=== PATIENT | male | born 1955 | race Caucasian/White ===

== ENCOUNTER 2017-11-13 09:52 | Emergency (ER) | payer BC, OTHER ==
[2017-11-13 11:28] LABS: Absolute Lymphocytes (CBC) 3.2 K/uL (0.7-4.9); Absolute Monocytes 0.9 K/uL (0.1-1.3); Absolute Neutrophil 5.2 K/uL (1.8-8.0); Basophils % 0.7 % (0-1.3); Eosinophils % 1.8 % (0-4.4); Hematocrit 57.4 % (39.6-49.0); Lymphocytes % 33.4 % (15.3-44.8); MCH 33.4 pg (27.0-35.0); MCV 98.1 fL (80-100); MPV 7.8 fL (7.6-11.3); Monocytes % 9.7 % (3.3-12.3); RBC Red Blood Cell Count 5.85 M/uL (4.33-5.43)
[2017-11-13 11:39] LABS: Protime INR 0.97
--- NOTE | 2017-11-13 12:47 | RAD REPORT ---
EXAM DESCRIPTION: RAD - Chest Single View - 11/13/2017 11:27 am CLINICAL HISTORY: Dyspnea COMPARISON: January 2017 TECHNIQUE: AP portable chest image was obtained 1113 hours . FINDINGS: No mass, consolidation or failure. Patient has chronic interstitial lung disease stable fr om prior imaging. Heart and vasculature are normal. No measurable pleural effusion and no pneumothora x. No gross bony abnormality seen. No acute aortic findings suspected. IMPRESSION: No acute cardiopulmonary process. Chronic interstitial lung disease similar to comparison.
[2017-11-13 12:57] LABS: ALT/SGPT 43 U/L (12-78); AST/SGOT 41 U/L (15-37); Alkaline Phosphatase 137 U/L (45-117); BUN Blood Urea Nitrogen 7 mg/dL (7-18); Bicarbonate 25 mmol/L (21-32); Bilirubin Direct 0.4 mg/dL (0-0.2); Bilirubin Total 1.4 mg/dL (0.2-1.0); CKMB Creatine Kinase MB 1.3 ng/mL (0.3-3.6); Creatine Phosphokinase 56 U/L (39-308); Glucose Level 84 mg/dL (74-106); NT PRO-BNP 27 pg/mL (<125); Potassium 4.4 mmol/L (3.5-5.1); Protein, Total 8.5 g/dL (6.4-8.2); Sodium Level 135 mmol/L (136-145)
--- NOTE | 2017-11-13 13:21 | ER ---
Nurse's Notes [facility] Name: Holland Wharton Age: 62 yrs Sex: Male : 1955 Arrival Date: 11/13/2017 Time: 09:55 Bed 19 Private MD: Out, [facility] Diagnosis: Tobacco abuse counseling;Tobacco use;Polycythemia vera;Chronic obstructive pulmonary disease, unspecified Presentation: 11/13 10:27 Presenting complaint: Patient states: sent by PCP for abnormal lab results. Pt reports sv epigastric pain, "feels like I have a gas bubble.". Transition of care: patient was not received from another setting of care. Onset of symptoms is unknown. Care prior to arrival: None. 10:27 Method Of Arrival: Ambulatory sv 10:27 Acuity: ANDREI 3 sv 11:21 Risk Assessment: Do you want to hurt yourself or someone else? Patient reports no em desire to harm self or others. Initial Sepsis Screen: Does the patient meet any 2 criteria? No. Patient's initial sepsis screen is negative. Does the patient have a suspected source of infection? No. Patient's initial sepsis screen is negative. Historical: - Allergies: 10:30 No Known Allergies; sv - Home Meds: 10:30 aspirin 325 mg Oral tab 1 tab once daily [Active]; atorvastatin 10 mg oral tab 1 tab sv once daily [Active]; metoprolol tartrate 25 mg Oral tab 1 tab 2 times per day [Active]; - PMHx: 10:30 Ischemic stroke; hyperglycemia; Hypertension; sv - PSHx: 10:30 None; sv - Immunization history:: Adult Immunizations up to date. - Social history:: Smoking status: Patient uses tobacco products, smokes one pack cigarettes per day. Patient uses alcohol, weekly. - Ebola Screening: : No symptoms or risks identified at this time. Screenin:20 Abuse screen: Denies threats or abuse. Nutritional screening: No deficits noted. em Tuberculosis screening: No symptoms or risk factors identified. Fall Risk None identified. Assessment: 10:55 General: Appears in no apparent distress. comfortable, Behavior is calm, cooperative, em appropriate for age. General: Reports was told to come have labs checked, 19.9 hgb and 59.4 hct. Pain: Denies pain. Neuro: Level of Consciousness is awake, alert, obeys commands, Oriented to person, place, time, situation. Cardiovascular: Capillary refill < 3 seconds Patient's skin is warm and dry. Cardiovascular: Denies chest pain, nausea, shortness of breath. Respiratory: Airway is patent Respiratory effort is even, unlabored, Respiratory pattern is regular, symmetrical. GI: Abdomen is flat. : Urine is clear. EENT: No signs and/or symptoms were reported regarding the EENT system. Derm: Skin is intact, Skin is pink, warm \\T\\ dry. Musculoskeletal: Range of motion: intact in all extremities. 11:50 Reassessment: Patient appears in no apparent distress at this time. Patient and/or em family updated on plan of care and expected duration. Pain level reassessed. Patient is alert, oriented x 3, equal unlabored respirations, skin warm/dry/pink. Patient denies pain at this time. 13:10 Reassessment: Patient appears in no apparent distress at this time. Patient and/or em family updated on plan of care and expected duration. Pain level reassessed. Patient is alert, oriented x 3, equal unlabored respirations, skin warm/dry/pink. pending troponin results. 13:31 Reassessment: Patient appears in no apparent distress at this time. request to have em some food and go smoke a cigarette, pt allowed to smoke and get food from vending machine. Vital Signs: 10:30 BP 124 / 88; Pulse 88; Resp 18; Temp 98.3; Pulse Ox 96% ; Weight 61.23 kg; Height 5 ft. sv 9 in. (175.26 cm); Pain 0/10; 13:49 BP 126 / 92; Pulse 77; Resp 16; Pulse Ox 99% on R/A; Pain 0/10; em 10:30 Body Mass Index 19.94 (61.23 kg, 175.26 cm) sv ED Course: 09:55 Patient arrived in ED. sb2 09:56 Out, [facility] is Private Physician. sb2 10:28 Triage completed. sv 10:30 Arm band placed on left wrist. sv 10:32 Ced Mesa MD is Attending Physician. kentrell 10:37 Merritt Martines LVN is Primary Nurse. em 11:10 No provider procedures requiring assistance completed. Inserted saline lock: 20 gauge em in right forearm, using aseptic technique. Blood collected. 11:10 Initial lab(s) drawn, by me, sent to lab. em 11:20 Patient has correct armband on for positive identification. Bed in low position. Call em light in reach. 11:27 XRAY Chest (1 view) In Process Unspecified. EDMS 11:47 EKG done, by ED staff, reviewed by Ced Mesa MD. em1 13:15 Repeat lab(s) drawn. by me, sent to lab. sg 13:56 IV discontinued, intact, bleeding controlled, No redness/swelling at site. Pressure em dressing applied. Administered Medications: No medications were administered Outcome: 13:21 Discharge ordered by . [facility] 13:56 Discharged to home ambulatory. em 13:56 Condition: good 13:56 Discharge instructions given to patient, Instructed on discharge instructions, follow up and referral plans. Demonstrated understanding of instructions, follow-up care. 13:58 Patient left the ED. sg Signatures: Dispatcher [employer] Loida Merchant RN RN sv Gay, Steven, RN RN sg Anderson, Corey, MD MD cha Munoz, Edgar, SHED BOSS SHED BOSS Cirilo Garcia em1 Anamaria Ruiz sb2
--- NOTE | 2017-11-13 13:21 | EDPHYS ---
Physician Documentation [facility] Name: Holland Wharton Age: 62 yrs Sex: Male : 1955 Arrival Date: 11/13/2017 Time: 09:55 Bed 19 Private MD: Out, [facility] ED Physician Ced Mesa HPI: 11/13 11:24 This 62 yrs old Male presents to ER via Ambulatory with complaints of kentrell Abnormal Lab Results. Historical: - Allergies: 10:30 No Known Allergies; sv - Home Meds: 10:30 aspirin 325 mg Oral tab 1 tab once daily [Active]; atorvastatin 10 mg oral tab 1 tab sv once daily [Active]; metoprolol tartrate 25 mg Oral tab 1 tab 2 times per day [Active]; - PMHx: 10:30 Ischemic stroke; hyperglycemia; Hypertension; sv - PSHx: 10:30 None; sv - Immunization history:: Adult Immunizations up to date. - Social history:: Smoking status: Patient uses tobacco products, smokes one pack cigarettes per day. Patient uses alcohol, weekly. - Ebola Screening: : No symptoms or risks identified at this time. ROS: 11:24 Constitutional: Negative for fever, chills, and weight loss, Eyes: Negative for injury, kentrell pain, redness, and discharge, ENT: Negative for injury, pain, and discharge, Neck: Negative for injury, pain, and swelling, Cardiovascular: Negative for chest pain, palpitations, and edema, Respiratory: Negative for shortness of breath, cough, wheezing, and pleuritic chest pain, Abdomen/GI: Negative for abdominal pain, nausea, vomiting, diarrhea, and constipation, Back: Negative for injury and pain, : Negative for injury, bleeding, discharge, and swelling, MS/Extremity: Negative for injury and deformity, Skin: Negative for injury, rash, and discoloration, Neuro: Negative for headache, weakness, numbness, tingling, and seizure, Psych: Negative for depression, anxiety, suicide ideation, homicidal ideation, and hallucinations, Allergy/Immunology: Negative for hives, rash, and allergies, Endocrine: Negative for neck swelling, polydipsia, polyuria, polyphagia, and marked weight changes, Hematologic/Lymphatic: Negative for swollen nodes, abnormal bleeding, and unusual bruising. Exam: 11:24 Constitutional: This is a well developed, well nourished patient who is awake, alert, kentrell and in no acute distress. Head/Face: Normocephalic, atraumatic. Eyes: Pupils equal round and reactive to light, extra-ocular motions intact. Lids and lashes normal. Conjunctiva and sclera are non-icteric and not injected. Cornea within normal limits. Periorbital areas with no swelling, redness, or edema. ENT: Nares patent. No nasal discharge, no septal abnormalities noted. Tympanic membranes are normal and external auditory canals are clear. Oropharynx with no redness, swelling, or masses, exudates, or evidence of obstruction, uvula midline. Mucous membranes moist. Neck: Trachea midline, no thyromegaly or masses palpated, and no cervical lymphadenopathy. Supple, full range of motion without nuchal rigidity, or vertebral point tenderness. No Meningismus. Chest/axilla: Normal chest wall appearance and motion. Nontender with no deformity. No lesions are appreciated. Cardiovascular: Regular rate and rhythm with a normal S1 and S2. No gallops, murmurs, or rubs. Normal PMI, no JVD. No pulse deficits. Respiratory: Lungs have equal breath sounds bilaterally, clear to auscultation and percussion. No rales, rhonchi or wheezes noted. No increased work of breathing, no retractions or nasal flaring. Abdomen/GI: Soft, non-tender, with normal bowel sounds. No distension or tympany. No guarding or rebound. No evidence of tenderness throughout. Back: No spinal tenderness. No costovertebral tenderness. Full range of motion. Male : Normal genitalia with no discharge or lesions. Skin: Warm, dry with normal turgor. Normal color with no rashes, no lesions, and no evidence of cellulitis. MS/ Extremity: Pulses equal, no cyanosis. Neurovascular intact. Full, normal range of motion. Vital Signs: 10:30 BP 124 / 88; Pulse 88; Resp 18; Temp 98.3; Pulse Ox 96% ; Weight 61.23 kg; Height 5 ft. sv 9 in. (175.26 cm); Pain 0/10; 13:49 BP 126 / 92; Pulse 77; Resp 16; Pulse Ox 99% on R/A; Pain 0/10; em 10:30 Body Mass Index 19.94 (61.23 kg, 175.26 cm) sv MDM: 10:33 Patient medically screened. [facility] 11:24 Data reviewed: vital signs, nurses notes, lab test result(s), EKG, radiologic studies, kentrell plain films. 11/13 11:01 Order name: Basic Metabolic Panel 11/13 11:01 Order name: CBC with Diff; Complete Time: 12:09 11/13 11:01 Order name: Ckmb 11/13 11:01 Order name: CPK 11/13 11:01 Order name: LFT's 11/13 11:01 Order name: Magnesium 11/13 11:01 Order name: NT PRO-BNP 11/13 11:01 Order name: PT-INR; Complete Time: 12:09 11/13 11:01 Order name: Ptt, Activated; Complete Time: 12:09 11/13 11:01 Order name: XRAY Chest (1 view); Complete Time: 13:20 11/13 11:01 Order name: EKG; Complete Time: 11:02 11/13 11:28 Order name: Urine Dipstick--Ancillary (enter results) 11/13 13:19 Order name: Troponin (emerg Dept Use Only) 11/13 11:01 Order name: Cardiac monitoring; Complete Time: 11:19 11/13 11:01 Order name: EKG - Nurse/Tech; Complete Time: 12:24 11/13 11:01 Order name: IV Saline Lock; Complete Time: 11:19 11/13 11:01 Order name: Labs collected and sent; Complete Time: 11:19 11/13 11:01 Order name: O2 Per Protocol; Complete Time: 11:19 11/13 11:01 Order name: O2 Sat Monitoring; Complete Time: 11:19 11/13 11:01 Order name: Urine Dipstick-Ancillary (obtain specimen); Complete Time: 11:19 ss Administered Medications: No medications were administered Disposition: 11/13/17 13:21 Discharged to Home. Impression: Tobacco abuse counseling, Tobacco use, Polycythemia vera, Chronic obstructive pulmonary disease, unspecified. - Condition is Stable. - Discharge Instructions: Smoking Cessation, Smoking Hazards, Stroke Prevention, Polycythemia Vera, Smoking Cessation, Tips For Success, Smoking, You Can Quit, [id number], Aspirin and Your Heart, Stroke Prevention, Ykan-tj-Nmtl. - Medication Reconciliation Form, Thank You Letter, Antibiotic Education, Prescription Opioid Use form. - Follow up: Private Physician; When: 2 - 3 days; Reason: Recheck today's complaints, Continuance of care, Re-evaluation by your physician. - Problem is new. - Symptoms have improved. Signatures: Dispatcher [employer] [facility] Loida Lal RN RN sv Gay, Steven, RN RN sg Anderson, Corey, MD MD cha Smirch, Shelby, RN RN ss Corrections: (The following items were deleted from the chart) 13:27 11:02 TROPONIN (EMERG DEPT USE ONLY)+C.LAB.BRZ ordered. [facility] 13:58 13:21 11/13/2017 13:21 Discharged to Home. Impression: Tobacco abuse counseling; sg Tobacco use; Polycythemia vera; Chronic obstructive pulmonary disease, unspecified. Condition is Stable. Discharge Instructions: Smoking Cessation, Smoking Hazards, Stroke Prevention, Polycythemia Vera, Smoking Cessation, Tips For Success, Smoking, You Can Quit, Gatu-ji-Cnap, Stroke Prevention, Epmp-rq-[id number], Aspirin and Your Heart. Forms are Medication Reconciliation Form, Thank You Letter, Antibiotic Education, Prescription Opioid Use. Follow up: Private Physician; When: 2 - 3 days; Reason: Recheck today's complaints, Continuance of care, Re-evaluation by your physician. Problem is new. Symptoms have improved. kentrell
[2017-11-13 13:46] LABS: Magnesium 2.4 mg/dL (1.8-2.4)
[2017-11-13 14:01] VITALS: TEMP 98.3
[2017-11-13 14:03] VITALS: BP 126/92; O2SAT 99
[2017-11-13 14:08] LABS: Urine Blood NEGATIVE (NEG); Urine Glucose NEGATIVE (NEG); Urine Protein NEGATIVE (NEG); Urine Specific Gravity 1.015 (1.005-1.030)
--- NOTE | 2017-11-14 09:31 | EKG ---
Test Date: 2017-11-13 Test Time: 11:43:03 [employer] Head: MARÍA MEASUREMENT RESULTS: Intervals: Rate: 76 NJ: 128 QRSD: 96 QT: 386 QTc: 434 Beulah: P: 82 NJ: 128 QRS: 77 T: 76 INTERPRETIVE STATEMENTS: Normal sinus rhythm Normal ECG Compared to ECG 01/15/2017 14:22:00 No significant changes Electronically Signed On 11-14-17 09:28:20 CDT by Juan Francisco Beth
== END 2017-11-13 13:58 | disposition home or self-care (01) ==
LOC: ER 09:52
DX: D45 Polycythemia vera (principal); J44.9 Chronic obstructive pulmonary disease, unspecified; I10 Essential (primary) hypertension; Z71.6 Tobacco abuse counseling; Z72.0 Tobacco use; Z79.82 Long term (current) use of aspirin
CPT/HCPCS: 36415; 71045; 80048; 80076; 81003; 82550; 82553; 83735; 83880; 84484; 85025; 85610; 85730; 93005; 99284

== ENCOUNTER 2017-11-20 12:19 | Emergency (ER) | payer BC ==
[2017-11-20 14:08] LABS: Absolute Lymphocytes (CBC) 3.5 K/uL (0.7-4.9); Absolute Monocytes 0.7 K/uL (0.1-1.3); Absolute Neutrophil 5.3 K/uL (1.8-8.0); Basophils % 0.7 % (0-1.3); Hematocrit 55.5 % (39.6-49.0); Lymphocytes % 35.9 % (15.3-44.8); MCH 32.6 pg (27.0-35.0); MCV 97.1 fL (80-100); MPV 8.3 fL (7.6-11.3); Monocytes % 7.3 % (3.3-12.3); RBC Red Blood Cell Count 5.72 M/uL (4.33-5.43)
[2017-11-20 14:12] LABS: Protime INR 0.99
[2017-11-20 14:37] LABS: ALT/SGPT 33 U/L (12-78); AST/SGOT 29 U/L (15-37); Albumin 3.6 g/dL (3.4-5.0); Alkaline Phosphatase 117 U/L (45-117); BUN Blood Urea Nitrogen 5 mg/dL (7-18); Bicarbonate 29 mmol/L (21-32); Bilirubin Direct 0.3 mg/dL (0-0.2); Bilirubin Total 1.1 mg/dL (0.2-1.0); CKMB Creatine Kinase MB < 1.0 ng/mL (0.3-3.6); Creatine Phosphokinase 49 U/L (39-308); Glucose Level 82 mg/dL (74-106); Magnesium 2.3 mg/dL (1.8-2.4); NT PRO-BNP 59 pg/mL (<125); Potassium 3.9 mmol/L (3.5-5.1); Protein, Total 7.5 g/dL (6.4-8.2); Sodium Level 139 mmol/L (136-145)
--- NOTE | 2017-11-20 14:47 | RAD REPORT ---
EXAM DESCRIPTION: CT - Chest For Pe Angio - 11/20/2017 2:23 pm CLINICAL HISTORY: Chest pain with shortness of breath COMPARISON: None. TECHNIQUE: Dynamically enhanced axial 3 mm thick images of the chest were obtained during administra tion of <100> mL Isovue 370 IV contrast. Coronal and oblique reconstruction images were generated and reviewed. Exam utilizes a protocol for optimal evaluation of pulmonary arterial tree. Maximum intensity projections 3D imaging was utilized All CT scans are performed using dose optimization technique as appropriate and may include automated exposure control or mA/KV adjustment according to patient size. FINDINGS: A pulmonary embolus is not seen. A thoracic aortic aneurysm is not noted. A pleural effusion is not seen. A pericardial effusion is not seen. A lung consolidation is not present. The wall of the esophagus appears thickened . A small hiatal hernia is present IMPRESSION: Negative for a pulmonary embolism. Apparent thickening of the wall esophagus may indicate inflammation or other pathology
--- NOTE | 2017-11-20 14:48 | RAD REPORT ---
EXAM DESCRIPTION: Cassia Single View11/20/2017 2:03 pm CLINICAL HISTORY: Chest pain COMPARISON: January 2017 FINDINGS: The lungs appear clear of acute infiltrate. The heart is normal size IMPRESSION: No acute abnormalities displayed
[2017-11-20 15:36] LABS: Urine Blood NEGATIVE (NEG); Urine Glucose NEGATIVE (NEG); Urine Protein NEGATIVE (NEG)
--- NOTE | 2017-11-20 17:00 | RAD REPORT ---
EXAM DESCRIPTION: US - Abdomen Exam Limited - 11/20/2017 3:50 pm CLINICAL HISTORY: Abdominal pain. COMPARISON: None. FINDINGS: The gallbladder wall is not thickened. A gallstone is not seen. The biliary tree is normal caliber. IMPRESSION: Unremarkable gallbladder ultrasound.
--- NOTE | 2017-11-20 17:11 | EDPHYS ---
Physician Documentation [facility] Name: Holland Wharton Age: 62 yrs Sex: Male : 1955 Arrival Date: 11/20/2017 Time: 12:21 Bed 24 Private MD: Out, [facility] ED Physician Dg Shore HPI: 11/20 14:00 This 62 yrs old Male presents to ER via Ambulatory with complaints of jmm Abnormal Lab Results. 14:00 The patient or guardian reports chest pain that is located primarily in the diaphragm, jmm right breast and left breast. Onset: gradually, 3 week(s) ago. The pain radiates to across the chest. Associated signs and symptoms: Pertinent positives: abdominal pain, nausea, sore throat. The chest pain is described as sharp. This is a 62 year old male with a history of HTN that presents to the ED with lower chest pain, nausea, abdominal pain, and sore throat beginning approx 3 weeks ago. The patient was evaluated in the ED on November 13 for similar symptoms and discharged. The patient states he is has had lab results of elevated hgb. Patient denies SOB, but decribes the chest pain as sharp when he takes a deep breath in. . Historical: - Allergies: 12:52 NKA; iw - Home Meds: 12:52 aspirin 325 mg Oral tab 1 tab once daily [Active]; atorvastatin 10 mg Oral tab 1 tab iw once daily [Active]; metoprolol tartrate 25 mg Oral tab 1 tab 2 times per day [Active]; - PMHx: 12:52 HYPERGLYCEMIA; Hypertension; ischemic stroke; iw - PSHx: 12:52 None; iw - Immunization history:: Adult Immunizations up to date. - Ebola Screening: : Patient negative for fever greater than or equal to 101.5 degrees Fahrenheit, and additional compatible Ebola Virus Disease symptoms Patient denies exposure to infectious person Patient denies travel to an Ebola-affected area in the 21 days before illness onset No symptoms or risks identified at this time. - Social history:: Smoking status: Patient uses tobacco products, smokes one pack cigarettes per day. ROS: 14:00 Constitutional: Negative for fever, chills, and weight loss. jmm 14:00 Back: Negative for injury and pain. 14:00 MS/Extremity: Negative for injury and deformity, Skin: Negative for injury, rash, and discoloration, Neuro: Negative for headache, weakness, numbness, tingling, and seizure. 14:00 ENT: Positive for sore throat. 14:00 Cardiovascular: Positive for chest pain. 14:00 Abdomen/GI: Positive for abdominal pain, nausea. 14:00 All other systems are negative. Exam: 14:00 Head/Face: atraumatic. Chest/axilla: Normal chest wall appearance and motion. [facility] Cardiovascular: Regular rate and rhythm. No edema appreciated 14:00 Abdomen/GI: Non distended, soft Back: Normal ROM MS/ Extremity: Moves all extremities, no obvious deformities appreciated, no edema noted to the lower extremities Neuro: Awake and alert, normal gait Psych: Behavior is normal, Mood is normal, Patient is cooperative and pleasant 14:00 Constitutional: The patient appears in no acute distress, alert, awake. 14:00 Cardiovascular: Rate: normal, Rhythm: regular, Pulses: no pulse deficits are appreciated. 14:00 Respiratory: the patient does not display signs of respiratory distress, Respirations: normal, Breath sounds: are clear throughout. Vital Signs: 12:52 BP 121 / 77; Pulse 79; Resp 16; Pulse Ox 97% on R/A; Weight 61.23 kg; Height 5 ft. 9 iw in. (175.26 cm); Pain 7/10; 13:15 BP 125 / 78; Pulse 65; Resp 18; Pulse Ox 99% on R/A; tl3 13:15 BP 122 / 78; Pulse 71; Resp 18; Pulse Ox 100% ; tl3 14:30 BP 112 / 78; Pulse 69; Resp 16; Pulse Ox 98% ; tl3 15:52 BP 126 / 83; Pulse 71; Resp 18; Pulse Ox 98% on R/A; mg2 16:00 BP 126 / 83; Pulse 67; Resp 18; Pulse Ox 99% on R/A; tl3 17:37 BP 113 / 76; Pulse 62; Resp 18; Pulse Ox 100% ; tl3 12:52 Body Mass Index 19.94 (61.23 kg, 175.26 cm) iw MDM: 13:29 Patient medically screened. [facility] 15:47 Data reviewed: vital signs, nurses notes, lab test result(s). jmm 17:10 NYDIA Risk Score: 1 - Three or more CAD risk factors, [HTN], [Active Smoker], 1- Known [facility] CAD, TOTAL SCORE = 2. Counseling: I had a detailed discussion with the patient and/or guardian regarding: the historical points, exam findings, and any diagnostic results supporting the discharge/admit diagnosis, lab results, radiology results, the need for outpatient follow up, to return to the emergency department if symptoms worsen or persist or if there are any questions or concerns that arise at home. ED course: I currently have low suspicion for ACS, labs similar to previous studies on 11/13/ Symptoms appear to be due to GI component. Patient give follow up for GI. I discussed this with the patient whom agrees with the plan of care. patient otherwise given strict return precautions. Patient is alert and non toxic in appearance in the ED upon discharge. . 11/20 13:04 Order name: Basic Metabolic Panel; Complete Time: 14:54 [facility] 11/20 13:04 Order name: CBC with Diff; Complete Time: 14:12 [facility] 11/20 13:04 Order name: Ckmb; Complete Time: 14:54 [facility] 11/20 13:04 Order name: CPK; Complete Time: 14:54 [facility] 11/20 13:04 Order name: LFT's; Complete Time: 14:54 [facility] 11/20 13:04 Order name: Magnesium; Complete Time: 14:54 [facility] 11/20 13:04 Order name: NT PRO-BNP; Complete Time: 14:54 [facility] 11/20 13:04 Order name: PT-INR; Complete Time: 14:20 [facility] 11/20 13:04 Order name: Ptt, Activated; Complete Time: 14:20 [facility] 11/20 13:04 Order name: Troponin (emerg Dept Use Only); Complete Time: 14:54 [facility] 11/20 13:04 Order name: XRAY Chest (1 view); Complete Time: 14:54 [facility] 11/20 13:30 Order name: CT Chest For PE Angio; Complete Time: 14:54 [facility] 11/20 15:06 Order name: US Abdomen Limited; Complete Time: 17:09 [facility] 11/20 15:08 Order name: Urine Dipstick--Ancillary (enter results); Complete Time: 15:47 11/20 13:04 Order name: EKG; Complete Time: 13:04 [facility] 11/20 13:04 Order name: Cardiac monitoring; Complete Time: 14:41 [facility] 11/20 13:04 Order name: EKG - Nurse/Tech; Complete Time: 14:41 [facility] 11/20 13:04 Order name: IV Saline Lock; Complete Time: 14:41 [facility] 11/20 13:04 Order name: Labs collected and sent; Complete Time: 14:41 [facility] 11/20 13:04 Order name: O2 Per Protocol; Complete Time: 14:41 [facility] 11/20 13:04 Order name: O2 Sat Monitoring; Complete Time: 15:40 [facility] 11/20 13:04 Order name: Urine Dipstick-Ancillary (obtain specimen); Complete Time: 15:40 [facility] Administered Medications: No medications were administered Disposition: 17:52 Co-signature as Attending Physician, Dg Shore MD. rn Disposition: 11/20/17 17:10 Discharged to Home. Impression: Esophagitis, Other chest pain. - Condition is Stable. - Discharge Instructions: Nonspecific Chest Pain, Esophagitis. - Prescriptions for Prilosec 20 mg Oral Capsule - take 1 capsule by ORAL route once daily; 10 capsule. - Medication Reconciliation Form, Thank You Letter, Antibiotic Education, Prescription Opioid Use form. - Follow up: Vazquez Grier MD; When: 2 - 3 days; Reason: Continuance of care. Signatures: Dispatcher [employer] EDMS Jabier Rush PA PA Nayla Maloney, RN Dg García MD MD rn Lowrey, Tammy, RN RN tl3 Corrections: (The following items were deleted from the chart) 17:40 17:10 11/20/2017 17:10 Discharged to Home. Impression: Esophagitis; Other chest pain. tl3 Condition is Stable. Forms are Medication Reconciliation Form, Thank You Letter, Antibiotic Education, Prescription Opioid Use. Follow up: Vazquez Grier; When: 2 - 3 days; Reason: Continuance of care. [facility]
--- NOTE | 2017-11-20 17:11 | ER ---
Nurse's Notes [facility] Name: Holland Wharton Age: 62 yrs Sex: Male : 1955 Arrival Date: 11/20/2017 Time: 12:21 Bed 24 Private MD: Out, [facility] Diagnosis: Esophagitis;Other chest pain Presentation: 11/20 12:49 Presenting complaint: Patient states: pain across chest, started last night, iw intermittent, feels like a stabbing pain, mild SOB, was told his blood count was abnormal in October. Transition of care: patient was not received from another setting of care. Onset of symptoms was November 20, 2017. Risk Assessment: Do you want to hurt yourself or someone else? Patient reports no desire to harm self or others. Initial Sepsis Screen: Does the patient meet any 2 criteria? No. Patient's initial sepsis screen is negative. Does the patient have a suspected source of infection? No. Patient's initial sepsis screen is negative. Care prior to arrival: None. 12:49 Method Of Arrival: Ambulatory iw 12:49 Acuity: ANDREI 3 iw Historical: - Allergies: 12:52 NKA; iw - Home Meds: 12:52 aspirin 325 mg Oral tab 1 tab once daily [Active]; atorvastatin 10 mg Oral tab 1 tab iw once daily [Active]; metoprolol tartrate 25 mg Oral tab 1 tab 2 times per day [Active]; - PMHx: 12:52 HYPERGLYCEMIA; Hypertension; ischemic stroke; iw - PSHx: 12:52 None; iw - Immunization history:: Adult Immunizations up to date. - Ebola Screening: : Patient negative for fever greater than or equal to 101.5 degrees Fahrenheit, and additional compatible Ebola Virus Disease symptoms Patient denies exposure to infectious person Patient denies travel to an Ebola-affected area in the 21 days before illness onset No symptoms or risks identified at this time. - Social history:: Smoking status: Patient uses tobacco products, smokes one pack cigarettes per day. Screenin:12 Abuse screen: Denies threats or abuse. Nutritional screening: No deficits noted. tl3 Tuberculosis screening: No symptoms or risk factors identified. Fall Risk None identified. Assessment: 13:15 General: Appears in no apparent distress. comfortable, slender, well developed, well tl3 nourished, Behavior is calm, cooperative, appropriate for age. Pain: Complains of pain in chest lower left side Pain currently is 1 out of 10 on a pain scale. Neuro: No deficits noted. Level of Consciousness is awake, alert, obeys commands, Oriented to person, place, time, situation, Appropriate for age. Cardiovascular: Heart tones S1 S2 present Patient's skin is warm and dry. Respiratory: Airway is patent Respiratory effort is even, unlabored, Respiratory pattern is regular, symmetrical, Breath sounds are clear bilaterally. GI: No signs and/or symptoms were reported involving the gastrointestinal system. : No signs and/or symptoms were reported regarding the genitourinary system. EENT: No signs and/or symptoms were reported regarding the EENT system. Derm: No signs and/or symptoms reported regarding the dermatologic system. Musculoskeletal: No signs and/or symptoms reported regarding the musculoskeletal system. 14:30 Reassessment: Patient appears in no apparent distress at this time. No changes from tl3 previously documented assessment. Patient and/or family updated on plan of care and expected duration. Pain level reassessed. Patient is alert, oriented x 3, equal unlabored respirations, skin warm/dry/pink. 16:00 Reassessment: Patient appears in no apparent distress at this time. No changes from tl3 previously documented assessment. Patient and/or family updated on plan of care and expected duration. Pain level reassessed. Patient is alert, oriented x 3, equal unlabored respirations, skin warm/dry/pink. 17:37 Reassessment: Patient appears in no apparent distress at this time. No changes from tl3 previously documented assessment. Patient and/or family updated on plan of care and expected duration. Pain level reassessed. Patient is alert, oriented x 3, equal unlabored respirations, skin warm/dry/pink. Vital Signs: 12:52 BP 121 / 77; Pulse 79; Resp 16; Pulse Ox 97% on R/A; Weight 61.23 kg; Height 5 ft. 9 iw in. (175.26 cm); Pain 7/10; 13:15 BP 125 / 78; Pulse 65; Resp 18; Pulse Ox 99% on R/A; tl3 13:15 BP 122 / 78; Pulse 71; Resp 18; Pulse Ox 100% ; tl3 14:30 BP 112 / 78; Pulse 69; Resp 16; Pulse Ox 98% ; tl3 15:52 BP 126 / 83; Pulse 71; Resp 18; Pulse Ox 98% on R/A; mg2 16:00 BP 126 / 83; Pulse 67; Resp 18; Pulse Ox 99% on R/A; tl3 17:37 BP 113 / 76; Pulse 62; Resp 18; Pulse Ox 100% ; tl3 12:52 Body Mass Index 19.94 (61.23 kg, 175.26 cm) iw ED Course: 12:21 Patient arrived in ED. mr 12:22 Out, of Town is Private Physician. mr 12:51 Triage completed. iw 12:52 Arm band placed on. iw 13:02 Jabier Rush PA is PHCP. jmm 13:02 Dg Shore MD is Attending Physician. jmm 13:50 EKG done, by ED staff, reviewed by Jabier GIBBS. jb1 13:50 Inserted saline lock: 22 gauge in right antecubital area, using aseptic technique. tl3 13:51 X-ray completed. Portable x-ray completed in exam room. Patient tolerated procedure la2 well. 14:03 XRAY Chest (1 view) In Process Unspecified. EDMS 14:23 CT Chest For PE Angio In Process Unspecified. EDMS 14:23 CT completed. Patient moved to CT via wheelchair. Patient moved back from CT. vr 14:32 Milagros Perez, RN is Primary Nurse. tl3 15:35 Ultrasound completed. Patient tolerated well. sg3 16:12 Patient has correct armband on for positive identification. Bed in low position. Call tl3 light in reach. Side rails up X 1. senior energy market coordinator on. Pulse ox on. NIBP on. 16:12 No provider procedures requiring assistance completed. tl3 17:10 Vazquez Grier MD is Referral Physician. jmm 17:37 IV discontinued, intact, bleeding controlled, No redness/swelling at site. Pressure tl3 dressing applied. Administered Medications: No medications were administered Outcome: 17:10 Discharge ordered by . jmm 17:37 Discharged to home ambulatory. tl3 17:37 Condition: good 17:37 Discharge instructions given to patient, Instructed on discharge instructions, follow up and referral plans. medication usage, Demonstrated understanding of instructions, follow-up care, medications, Prescriptions given X 1. 17:40 Patient left the ED. tl3 Signatures: Dispatcher [employer] EDMS Aaron Choudhury jb1 Jabier Rush PA PA jmm Rivera, Maria mr Nayla Sutton, RN RN Tereza Stratton Leslie la2 Daniela Peck sg3 Milagros Perez, SKYLER RN tl3 Pito Rico, SKYLER RN mg2 Corrections: (The following items were deleted from the chart) 15:50 15:50 In radiology for Abdomen Limited+[email or web address]. KERRYCO sg3
[2017-11-20 17:50] VITALS: BP 113/76; O2SAT 100
--- NOTE | 2017-11-22 07:46 | EKG ---
Test Date: 2017-11-20 Test Time: 13:35:58 Professor Of Literacy: LIANA MEASUREMENT RESULTS: Intervals: Rate: 65 DC: 146 QRSD: 100 QT: 408 QTc: 424 Maxie: P: 86 DC: 146 QRS: 63 T: 71 INTERPRETIVE STATEMENTS: Normal sinus rhythm Normal ECG Compared to ECG 11/13/2017 11:43:03 No significant changes Electronically Signed On 11-22-17 07:45:06 CDT by Gomez Collins
== END 2017-11-20 17:40 | disposition home or self-care (01) ==
LOC: ER 12:19
DX: K20.9 Esophagitis, unspecified (principal); F17.210 Nicotine dependence, cigarettes, uncomplicated; I10 Essential (primary) hypertension; Z79.82 Long term (current) use of aspirin; Z86.73 Personal history of transient ischemic attack (TIA), and cerebral infarction without residual deficits
CPT/HCPCS: 36415; 71045; 71275; 76705; 80048; 80076; 81003; 82550; 82553; 83735; 83880; 84484; 85025; 85610; 85730; 93005; 99285; Q9967